=== PATIENT | male | born 1985 | race Hispanic/Latino ===

== ENCOUNTER 2017-06-11 21:50 | Emergency (ER) | payer OTHER ==
[2017-06-11 22:11] VITALS: BP 96/66; PULSE 91; RESP 18; TEMP 97.4; O2SAT 99
--- NOTE | 2017-06-11 22:33 | ED PDOC ---
HPI: Abdomen Time Seen by Provider: 06/11/17 22:17 Chief Complaint (Nursing): Abdominal Pain Chief Complaint (Provider): Diffuse abdominal pain History Per: Patient History/Exam Limitations: no limitations Onset/Duration Of Symptoms: Hrs Outside of [place] travel?: No Associated Symptoms: Nausea, Vomiting, Loss Of Appetite. denies: Fever, Chills , Diarrhea Exacerbating Factors: None Alleviating Factors: None Last Bowel Movement: Today Additional Complaint(s): 32 yo male with history of asthma, OCD, bipolar and ADD presents with abdominal pain for a few hours. Pt states he was at work this afternoon and felt like someone punched him in the right shoulder and was having abdominal pain. PT states he took a train to [place] to see his girlfriend. PT states when he was getting off the train he felt like he was going to pass out. Pt states he was able to walk from the train station to the ER. Pt reports vomiting on arrival. Pt states he only take albuterol inhaler at home and does not take anything for psychiatric illnesses. Past Medical History Reviewed: Historical Data, Nursing Documentation, Vital Signs Vital Signs: Last Vital Signs Temp 97.4 F L 06/11/17 22:08 Pulse 91 H 06/11/17 22:08 Resp 18 06/11/17 22:08 BP 96/66 L 06/11/17 22:08 Pulse Ox 99 06/12/17 01:35 - Medical History PMH: No Chronic Diseases - Surgical History Surgical History: No Surg Hx - Family History Family History: States: No Known Family Hx - Allergies Allergies/Adverse Reactions: Allergies Allergy/AdvReac Type Severity Reaction Status Date / Time amoxicillin Allergy ANAPHYLAXIS Verified 06/11/17 22:03 cat pelt standardized Allergy RASH Verified 06/11/17 22:08 allergenic ex dog dander Allergy RASH Verified 06/11/17 22:08 Penicillins Allergy ANAPHYLAXIS Verified 06/11/17 22:03 shellfish derived Allergy ANAPHYLAXIS Verified 06/11/17 22:03 soy Allergy ANAPHYLAXIS Verified 06/11/17 22:03 Sulfa (Sulfonamide Allergy REDNESS Verified 06/11/17 22:08 Antibiotics) Review of Systems ROS Statement: Except As Marked, All Systems Reviewed And Found Negative Constitutional: Negative for: Fever, Chills Gastrointestinal: Positive for: Nausea, Vomiting, Abdominal Pain Musculoskeletal: Positive for: Other Physical Exam - Reviewed Nursing Documentation Reviewed: Yes Vital Signs Reviewed: Yes - Physical Exam Appears: Positive for: Well, Non-toxic, No Acute Distress Head Exam: Positive for: ATRAUMATIC, NORMAL INSPECTION, NORMOCEPHALIC Skin: Positive for: Normal Color, Warm, DRY Eye Exam: Positive for: Normal appearance ENT: Positive for: Normal ENT Inspection Neck: Positive for: Normal, Painless ROM Cardiovascular/Chest: Positive for: Regular Rate, Rhythm Respiratory: Positive for: CNT, Normal Breath Sounds Gastrointestinal/Abdominal: Positive for: Bowel Sounds, Soft, Tenderness ( Diffuse). Negative for: Normal Exam Back: Positive for: Normal Inspection Extremity: Positive for: Normal ROM Neurologic/Psych: Positive for: Alert, Oriented - Laboratory Results Result Diagrams: 06/12/17 00:05 06/12/17 00:05 - ECG O2 Sat by Pulse Oximetry: 99 Medical Decision Making Medical Decision Making: Enlarged mesenteric lymph nodes on CT. Disposition - Clinical Impression Clinical Impression: Mesenteric adenitis - Patient ED Disposition Is Patient to be Admitted: No Counseled Patient/Family Regarding: Diagnosis, Need For Followup - Disposition Referrals: [facility] [Outside] Disposition: Routine/Home Disposition Time: 01:34 Condition: STABLE Instructions: Mesenteric Lymphadenitis (DC) Forms: [employer] (Swiss)
[2017-06-11] MEDS ORDERED: Sodium Chloride 0.9% 1,000 ML IV STA (22:34)
[2017-06-11 22:54] LABS: VENOUS BLOOD GAS BASE EXCESS 6.4 mmol/L (0.0-2.0); VENOUS BLOOD GAS PCO2 58 mmHg (40-60); VENOUS BLOOD GAS PO2 15 mm/Hg (30-55); VENOUS BLOOD PH 7.37 (7.32-7.43)
[2017-06-12 00:10] LABS: BASO % 0.3 % (0.0-2.0); EOS % 0.3 % (0.0-4.0); HEMOGLOBIN 16.2 g/dL (12.0-18.0); LYMPH # 1.3 K/uL (1.0-4.3); LYMPH % 12.3 % (20.0-40.0); MEAN CELL VOLUME 92.2 fl (80.0-94.0); MEAN CORPUSCULAR HEMOGLOBIN 31.5 pg (27.0-31.0); MEAN CORPUSCULAR HGB CONC 34.1 g/dL (33.0-37.0); MEAN PLATELET VOLUME 8.4 fl (7.2-11.7); MONO # 0.6 K/uL (0.0-0.8); MONO % 5.5 % (0.0-10.0); NEUT # 8.4 K/uL (1.8-7.0); NEUT % 81.6 % (50.0-75.0); NRBC % 0.6 % (0.0-0.0); RBC 5.16 Mil/uL (4.40-5.90); RED CELL DISTRIBUTION WIDTH 12.5 % (11.5-14.5); WHITE BLOOD COUNT 10.3 K/uL (4.8-10.8)
[2017-06-12 00:21] LABS: ALB/GLOB RATIO 1.5 (1.0-2.1); ALBUMIN 4.5 g/dL (3.5-5.0); ALT/SGPT 41 U/L (21-72); AST/SGOT 31 U/L (17-59); BLOOD UREA NITROGEN 21 mg/dl (9-20); CALCIUM 9.6 mg/dL (8.4-10.2); GFR AFRICAN-AMERICAN > 60; GFR NON-AFRICAN AMERICAN > 60; LIPASE 31 U/L (23-300)
[2017-06-12] MEDS ORDERED: Iohexol 300 100 ML IJ ONE (00:32)
--- NOTE | 2017-06-12 00:34 | US ---
EXAM: US Abdomen Limited, Right Upper Quadrant CLINICAL HISTORY: 32 years old, male; Pain; Abdominal pain; Epigastric; Additional info: Abdominal pain, right shoulder pain TECHNIQUE: Real-time ultrasound of the right upper quadrant with image documentation. COMPARISON: No relevant prior studies available. FINDINGS: Liver: Normal echogenicity. No mass. No intrahepatic bile duct dilatation. Gallbladder: No gallstones. No wall thickening. No pericholecystic fluid. No sonographic Banks's sign. Common bile duct: No dilatation. No stones. Pancreas: Unremarkable as visualized. Right kidney: Normal echogenicity. No hydronephrosis. IMPRESSION: 1.No acute findings.
--- NOTE | 2017-06-12 00:53 | CT ---
EXAM: CT Abdomen and Pelvis With Intravenous Contrast CLINICAL HISTORY: 32 years old, male; Pain; Abdominal pain; Generalized; Patient HX: Generalized abd pain n v TECHNIQUE: Axial computed tomography images of the abdomen and pelvis with intravenous contrast. All CT scans at this facility use one or more dose reduction techniques, viz.: automated exposure control; ma/kV adjustment per patient size (including targeted exams where dose is matched to indication; i.e. head); or iterative reconstruction technique. Coronal and sagittal reformatted images were created and reviewed. CONTRAST: 98 mL of OMNIPAQUE administered intravenously. COMPARISON: US - ABDOMEN LIMITED (GB INCLUDED) 2017-06-11 23:54 FINDINGS: Limitations: Motion artifact - mild. Lower thorax: No acute findings. ABDOMEN: Liver: Unremarkable. No mass. Gallbladder and bile ducts: No calcified stones. No ductal dilation. Pancreas: No ductal dilation. No mass. Spleen: No splenomegaly. Adrenals: No mass. Kidneys and ureters: No mass. No hydronephrosis. Stomach and bowel: Fluid within small bowel. Fluid/loose stool within RIGHT colon. No definite mural thickening. No obstruction. Appendix: Normal caliber. No inflammation. PELVIS: Bladder: Unremarkable. Reproductive: Unremarkable as visualized. ABDOMEN and PELVIS: Intraperitoneal space: No significant fluid collection. No free air. Bones/joints: Mild curvature of spine. No acute fracture. Soft tissues: Tiny umbilical hernia containing fat. Vasculature: Unremarkable. No aneurysm. Lymph nodes: Few subcentimeter short axis mesenteric lymph nodes, nonspecific. IMPRESSION: 1. Fluid/loose stool within bowel may suggest diarrhea illness. 2. Incidental/non-acute findings are described above.
== END 2017-06-12 02:19 | disposition home or self-care (01) ==
LOC: H.ER 21:50
DX: I88.0 Nonspecific mesenteric lymphadenitis (principal); Z88.0 Allergy status to penicillin
CPT/HCPCS: 74177; 76705; 80053; 82803; 83690; 85025; 87040; 96360; 99283; J1885; J7040; Q9967

== ENCOUNTER 2017-06-12 04:51 | Observation (INO) | payer OTHER ==
[2017-06-12] MEDS ORDERED: Sodium Chloride 0.9% 1,000 ML IV STA (05:17)
--- NOTE | 2017-06-12 05:19 | ED PDOC ---
HPI: Abdomen Time Seen by Provider: 06/12/17 04:59 Chief Complaint (Nursing): Abdominal Pain Chief Complaint (Provider): Continued abdominal pain and vomiting History Per: Patient History/Exam Limitations: no limitations Onset/Duration Of Symptoms: Days Outside of [place] travel?: No Current Symptoms Are (Timing): Still Present Quality Of Discomfort: Sharp Associated Symptoms: Nausea, Vomiting Additional Complaint(s): Pt returns to ER for comminuted pain and vomiting. PT vomited 8 times at home after leaving ER. No fever Past Medical History Reviewed: Historical Data, Nursing Documentation, Vital Signs Vital Signs: Last Vital Signs Temp 97.5 F L 06/12/17 05:09 Pulse 115 H 06/12/17 05:09 Resp 18 06/12/17 05:09 BP 121/75 06/12/17 05:09 Pulse Ox 99 06/12/17 05:09 - Medical History PMH: Asthma, Bipolar Disorder - Surgical History Surgical History: No Surg Hx - Family History Family History: States: No Known Family Hx - Allergies Allergies/Adverse Reactions: Allergies Allergy/AdvReac Type Severity Reaction Status Date / Time amoxicillin Allergy ANAPHYLAXIS Verified 06/11/17 22:03 cat pelt standardized Allergy RASH Verified 06/11/17 22:08 allergenic ex dog dander Allergy RASH Verified 06/11/17 22:08 Penicillins Allergy ANAPHYLAXIS Verified 06/11/17 22:03 shellfish derived Allergy ANAPHYLAXIS Verified 06/11/17 22:03 soy Allergy ANAPHYLAXIS Verified 06/11/17 22:03 Sulfa (Sulfonamide Allergy REDNESS Verified 06/11/17 22:08 Antibiotics) Review of Systems ROS Statement: Except As Marked, All Systems Reviewed And Found Negative Constitutional: Negative for: Fever, Chills Gastrointestinal: Positive for: Nausea, Vomiting, Abdominal Pain Physical Exam - Reviewed Nursing Documentation Reviewed: Yes Vital Signs Reviewed: Yes - Physical Exam Appears: Positive for: Well, Non-toxic, No Acute Distress Head Exam: Positive for: ATRAUMATIC, NORMAL INSPECTION, NORMOCEPHALIC Skin: Positive for: Normal Color, Warm, DRY Eye Exam: Positive for: Normal appearance ENT: Positive for: Normal ENT Inspection Neck: Positive for: Normal, Painless ROM Cardiovascular/Chest: Positive for: Regular Rate, Rhythm Respiratory: Positive for: CNT, Normal Breath Sounds Gastrointestinal/Abdominal: Positive for: Bowel Sounds, Soft, Tenderness ( Diffuse ). Negative for: Normal Exam Back: Positive for: Normal Inspection Extremity: Positive for: Normal ROM Neurologic/Psych: Positive for: Alert, Oriented - ECG O2 Sat by Pulse Oximetry: 99 Disposition - Clinical Impression Clinical Impression: Mesenteric adenitis, Intractable vomiting - Patient ED Disposition Is Patient to be Admitted: Yes Counseled Patient/Family Regarding: Diagnosis, Need For Followup - Disposition Disposition Time: 05:19 Condition: STABLE - Pt Status Changed To: Hospital Disposition Of: Observation - Admit Certification Admit to Inpatient:: M/S - POA Present On Arrival: None
--- NOTE | 2017-06-12 05:22 | CP.PCM.HP ---
History of Present Illness - History of Present Illness History of Present Illness: PMD: Not on staff Chief complaint: Abdominal pain The patient was seen and examined in the ED HPI: 32 years old male with hx of Asthma and Bipolar disorder, was seen at the Ed one day ago with Abdominal pain and vomiting, discharged to home with dx of Mesenteric Adenitis. He returned today because of no relief of the abdominal pain which now is 2 days duration, beginning abruptly like a punch at his work, and is located at the periumbilical region radiating to the right abdomen and some association with his chronic right shoulder pain. The pain is associated with frontal headaches, lightheadedness, nausea, vomits and no bowel movements. No Fever, diarrhea, dysuria nor urinary frequency. PMH: Asthma, Bipolar Disorder; ADD; OCD; PSH: No Surg Hx SH: Never smoked; No illegal drug use; occasional Alcohol; Live with family FH: States: No Known Family Hx Allergies: Amoxicillin: Penicillin; Sulfa; Shell Fish; Dog dander; Cat Pelt; Soy Medication: Reviewed Present on Admission - Present on Admission Any Indicators Present on Admission: No History of DVT/PE: No History of Uncontrolled Diabetes: No Urinary Catheter: No Decubitus Ulcer Present: No Review of Systems - Constitutional Constitutional: Chills, Headache. absent: Anorexia, Fever, Lethargy - EENT Eyes: absent: Diplopia, Floaters, Requires Corrective Lenses Nose/Mouth/Throat: absent: Epistaxis, Nasal Congestion, Nasal Discharge, Sinus Pain, Sinus Pressure - Cardiovascular Cardiovascular: absent: Chest Pain, Dyspnea, Edema - Respiratory Respiratory: absent: Cough, Wheezing, Stridor, Chest Congestion - Gastrointestinal Gastrointestinal: Abdominal Pain, Nausea, Vomiting. absent: Constipation, Diarrhea - Genitourinary Genitourinary: absent: Dysuria, Flank Pain, Hematuria, Urinary Frequency - Musculoskeletal Musculoskeletal: absent: Arthralgias, Muscle Cramps, Muscle Weakness, Myalgias - Integumentary Integumentary: absent: Pruritus, Rash, Skin Ulcer, Sores, Striae, Swelling - Neurological Neurological: Dizziness. absent: Confusion, Focal Weakness, Weakness - Psychiatric Psychiatric: Depression. absent: Anxiety, Panic Attacks - Endocrine Endocrine: absent: Palpitations, Polydipsia, Polyphagia, Polyuria - Hematologic/Lymphatic Hematologic: absent: Easy Bleeding, Easy Bruising Past Patient History - Past Medical History & Family History Past Medical History?: Yes - Past Social History Smoking Status: Never Smoked Chewing Tobacco Use: No Cigar Use: No Alcohol: Occasional Home Situation {Lives}: With Family - CARDIAC Hx Cardiac Disorders: No - PULMONARY Hx Asthma: Yes - NEUROLOGICAL Hx Neurological Disorder: No - HEENT Hx HEENT Problems: No - RENAL Hx Chronic Kidney Disease: No - ENDOCRINE/METABOLIC Hx Endocrine Disorders: No - HEMATOLOGICAL/ONCOLOGICAL Hx Blood Disorders: No - INTEGUMENTARY Hx Dermatological Problems: No - MUSCULOSKELETAL/RHEUMATOLOGICAL Hx Musculoskeletal Disorders: No - GASTROINTESTINAL Hx Gastrointestinal Disorders: No - GENITOURINARY/GYNECOLOGICAL Hx Genitourinary Disorders: No - PSYCHIATRIC Hx Bipolar Disorder: Yes - SURGICAL HISTORY Hx Surgeries: No - ANESTHESIA Hx Anesthesia: No Meds Allergies/Adverse Reactions: Allergies Allergy/AdvReac Type Severity Reaction Status Date / Time amoxicillin Allergy ANAPHYLAXIS Verified 06/11/17 22:03 cat pelt standardized Allergy RASH Verified 06/11/17 22:08 allergenic ex dog dander Allergy RASH Verified 06/11/17 22:08 Penicillins Allergy ANAPHYLAXIS Verified 06/11/17 22:03 shellfish derived Allergy ANAPHYLAXIS Verified 06/11/17 22:03 soy Allergy ANAPHYLAXIS Verified 06/11/17 22:03 Sulfa (Sulfonamide Allergy REDNESS Verified 06/11/17 22:08 Antibiotics) Physical Exam - Constitutional Appears: No Acute Distress - Head Exam Head Exam: ATRAUMATIC, NORMAL INSPECTION, NORMOCEPHALIC - Eye Exam Eye Exam: EOMI, Normal appearance Pupil Exam: NORMAL ACCOMODATION, PERRL - ENT Exam ENT Exam: Mucous Membranes Moist, Normal Exam, Normal External Ear Exam - Neck Exam Neck exam: Positive for: Full Rom, Normal Inspection. Negative for: Lymphadenopathy, Tenderness - Respiratory Exam Respiratory Exam: Clear to Auscultation Bilateral. absent: Rales, Rhonchi, Wheezes - Cardiovascular Exam Cardiovascular Exam: REGULAR RHYTHM, RRR, +S1, +S2. absent: Gallop - GI/Abdominal Exam Additional comments: Flat, decreased bowel sounds, Doft ,tender at periumbilical region, no guarding , no rebound tenderness - Rectal Exam Rectal Exam: Deferred - Extremities Exam Extremities exam: Positive for: normal inspection. Negative for: calf tenderness, pedal edema - Back Exam Back exam: NORMAL INSPECTION. absent: CVA tenderness (L), CVA tenderness (R) - Neurological Exam Neurological exam: Alert, CN II-XII Intact, Oriented x3, Reflexes Normal - Psychiatric Exam Psychiatric exam: Normal Affect, Normal Mood - Skin Skin Exam: Dry, Intact, Normal Color, Warm Results - Vital Signs Recent Vital Signs: Last Vital Signs Temp 97.5 F L 06/12/17 05:09 Pulse 115 H 06/12/17 05:09 Resp 18 06/12/17 05:09 BP 121/75 06/12/17 05:09 Pulse Ox 99 06/12/17 05:20 - Labs Result Diagrams: 06/12/17 05:39 - Imaging and Cardiology CT scan - abdomen Status: Report reviewed by me Additional comment: EXAM: CT Abdomen and Pelvis With Intravenous Contrast Limitations: Motion artifact - mild. Lower thorax: No acute findings. ABDOMEN: Liver: Unremarkable. No mass. Gallbladder and bile ducts: No calcified stones. No ductal dilation. Pancreas: No ductal dilation. No mass. Spleen: No splenomegaly. Adrenals: No mass. Kidneys and ureters: No mass. No hydronephrosis. Stomach and bowel: Fluid within small bowel. Fluid/loose stool within RIGHT colon. No definite mural thickening. No obstruction. Appendix: Normal caliber. No inflammation. PELVIS: Bladder: Unremarkable. Reproductive: Unremarkable as visualized. ABDOMEN and PELVIS: Intraperitoneal space: No significant fluid collection. No free air. Bones/joints: Mild curvature of spine. No acute fracture. Soft tissues: Tiny umbilical hernia containing fat. Vasculature: Unremarkable. No aneurysm. Lymph nodes: Few subcentimeter short axis mesenteric lymph nodes, nonspecific. IMPRESSION: 1. Fluid/loose stool within bowel may suggest diarrhea illness. 2. Incidental/non-acute findings are described above. US - abdomen Status: Report reviewed by me Additional comment: EXAM: US Abdomen Limited, Right Upper Quadrant FINDINGS: Liver: Normal echogenicity. No mass. No intrahepatic bile duct dilatation. Gallbladder: No gallstones. No wall thickening. No pericholecystic fluid. No sonographic Banks's sign. Common bile duct: No dilatation. No stones. Pancreas: Unremarkable as visualized. Right kidney: Normal echogenicity. No hydronephrosis IMPRESSION: 1. No acute findings. Thank you for allowing us t Assessment & Plan - Assessment and Plan (Free Text) Assessment: #. Intractible Abdominal Pain Plan: 32 years old male, was seen at the Ed one day ago with Abdominal pain and vomiting, discharged to home with dx of Mesenteric Adenitis. He returned today because of no relief of the abdominal pain which now is 2 days duration, beginning abruptly like a punch at his work, and is located at the periumbilical region radiating to the right abdomen. #. Intractable Abdominal Pain with CT abdomen showing Fluid with loose stool on colon suggesting diarrhea, consider an obstipation - Abdomen supine and erect, - Fleets Enema - Pain management - IV Fluids CT Abd/Pel IMPRESSION: 1. Fluid/loose stool within bowel may suggest diarrhea illness. 2. Incidental/non-acute findings are described above. #. Stress ulcer prophylaxis with Pantoprazole #. DVT prophylaxis with Heparin #. Code Status: Full Mat Black MD - Date & Time Date: 06/12/17 Time: 05:22
[2017-06-12 05:44] LABS: BASO % 0.2 % (0.0-2.0); EOS % 0.1 % (0.0-4.0); HEMOGLOBIN 16.3 g/dL (12.0-18.0); LYMPH # 0.3 K/uL (1.0-4.3); LYMPH % 3.3 % (20.0-40.0); MEAN CELL VOLUME 91.1 fl (80.0-94.0); MEAN CORPUSCULAR HEMOGLOBIN 31.7 pg (27.0-31.0); MEAN CORPUSCULAR HGB CONC 34.8 g/dL (33.0-37.0); MEAN PLATELET VOLUME 7.9 fl (7.2-11.7); MONO # 0.4 K/uL (0.0-0.8); MONO % 4.9 % (0.0-10.0); NEUT # 7.3 K/uL (1.8-7.0); NEUT % 91.5 % (50.0-75.0); NRBC % 0.4 % (0.0-0.0); PLATELET COUNT 198 K/uL (130-400); RBC 5.13 Mil/uL (4.40-5.90); RED CELL DISTRIBUTION WIDTH 12.2 % (11.5-14.5)
[2017-06-12 05:50] LABS: LIPASE 33 U/L (23-300)
[2017-06-12] MEDS ORDERED: Albuterol HFA 90 mcg/actuation (8 g) INH PRN (05:57)
[2017-06-12] MEDS: Potassium Chl 20 mEq in NS 1,000 ML IV SCH ×2 (06:55→15:06)
[2017-06-12] MEDS ORDERED: Pneumococcal 23-Valent Vaccine IM ONE (07:00)
[2017-06-12 08:42] LABS: HEMOGLOBIN 14.8 g/dL (12.0-18.0); MEAN CELL VOLUME 91.5 fl (80.0-94.0); MEAN CORPUSCULAR HEMOGLOBIN 31.5 pg (27.0-31.0); MEAN CORPUSCULAR HGB CONC 34.4 g/dL (33.0-37.0); RBC 4.7 Mil/uL (4.40-5.90); RED CELL DISTRIBUTION WIDTH 12.2 % (11.5-14.5); WHITE BLOOD COUNT 7.2 K/uL (4.8-10.8)
[2017-06-12] MEDS ORDERED: Enoxaparin 40 mg Syringe SC SCH (09:00)
[2017-06-12] MEDS ORDERED: Pantoprazole 40 mg EC Tab PO SCH (09:00)
--- NOTE | 2017-06-12 09:06 | CARD ---
APPROVED REPORT EKG Measurement Heart [id number] <Conclusion> Normal sinus rhythm Nonspecific T wave abnormality Abnormal ECG
[2017-06-12 10:34] LABS: SQUAMOUS EPITHIAL < 1 /hpf (0-5); URINE BACTERIA RARE (<OCC); URINE BILIRUBIN NEGATIVE (NEGATIVE); URINE BLOOD NEGATIVE (NEGATIVE); URINE CLARITY CLEAR (Clear); URINE COLOR YELLOW (YELLOW); URINE GLUCOSE (UA) NEG (Normal); URINE LEUKOCYTE ESTERASE NEG Leu/uL (Negative); URINE PROTEIN NEGATIVE (NEGATIVE); URINE UROBILINOGEN 0.2-1.0 mg/dL (0.2-1.0)
[2017-06-12 11:50] LABS: BARBITURATES, UR NEGATIVE (NEGATIVE); BENZODIAZEPINES, UR NEGATIVE (NEGATIVE); OPIATES, UR NEGATIVE (NEGATIVE); PHENCYCLIDINE, UR NEGATIVE (NEGATIVE)
[2017-06-12 13:10] LABS: BANDS 1 % (0-2); LYMPHOCYTE 9 % (20-50); MONOCYTE 5 % (0-10); NEUTROPHIL 83 % (42-75); REACTIVE LYMPHOCYTES 2 % (0-0); TOTAL CELLS COUNTED 100
[2017-06-12 13:11] LABS: PLATELET ESTIMATE NORMAL (NORMAL)
--- NOTE | 2017-06-12 13:57 | RAD ---
PROCEDURE: Radiographs of the chest and abdomen (obstructive series) HISTORY: Constipation/CT ABD/Pel shows loose stool in Colon COMPARISON: No prior. TECHNIQUE: AP radiograph of the chest, with upright and supine radiographs of the abdomen. FINDINGS: CHEST: Lungs: Clear. Cardiovascular: Normal size heart. No pulmonary vascular congestion. Pleura: No pleural fluid. No pneumothorax. Other findings: None. ABDOMEN AND PELVIS: Bowel: No evidence of bowel dilatation or bowel obstruction. A few subtle scattered fluid levels are appreciated. This may suggest enteritis. No focal colonic wall thickening is seen. No thumbprinting of the bowel is noted. Free air: None. Bones: Unremarkable. Other findings: None. IMPRESSION: Nonspecific bowel gas pattern without evidence of bowel obstruction. A few small fluid levels within the small bowel probably reflect mild ileus or enteritis. .
[2017-06-12 15:51] VITALS: BP 101/62; PULSE 95; RESP 18; TEMP 99.1; O2SAT 99
== END 2017-06-12 16:35 | disposition home or self-care (01) ==
LOC: H.ER 04:51 → H.ERHOLD 05:16 → H.MEDSURG1 06:22
PROVIDERS: ADMIT Internal Medicine; ATTEND Internal Medicine
DX: I88.0 Nonspecific mesenteric lymphadenitis (principal); J45.909 Unspecified asthma, uncomplicated; K56.7 Ileus, unspecified; G89.29 Other chronic pain; M25.511 Pain in right shoulder; R42 Dizziness and giddiness; A08.4 Viral intestinal infection, unspecified; F31.9 Bipolar disorder, unspecified; F42.9 Obsessive-compulsive disorder, unspecified
CPT/HCPCS: 74022; 80320; 80324; 80345; 80346; 80349; 80353; 80358; 80361; 81003; 83690; 83992; 85025; 85027; 87070; 87430; 93005; 96360; 96365; 99283; G0378; J2765; J7040